=== PATIENT | male | born 1975 | race Caucasian/White ===

== ENCOUNTER 2017-06-17 19:20 | Inpatient (IN) | payer BC ==
[~2017-06-17] VITALS: Ht 177.8 cm; Wt 104.8 kg
--- NOTE | ~2017-06-17 | ER ---
PATIENT'S NAME: [facility] AGE: 41 Y [address] ROOM: [place] [address] LOCATION: GPCU ADMIT DATE: 06/17/2017 ER/Outpatient Report DISCHARGE DATE: FAMILY PHYSICIAN: Henry Arciniega MD ATTENDING PHYSICIAN: ALEX MONTAÑO Time of Arrival: 1920 hours. Time of Evaluation: 1945 hours. CHIEF COMPLAINT: Abdominal pain. HISTORY OF PRESENT ILLNESS: This is a 41-year-old male who presents to the ER with midepigastric abdominal pain. The patient states his pain started yesterday. States that his pain does radiate into his back. He did see his chiropractor for and felt like it maybe helped a little bit but started coming back, worse than it did before. He states that his pain is a dull aching pain. It makes him feel nauseated, but he has had no vomiting. He has had no diarrhea or constipation. His last bowel movement was today and was normal. He has had no troubles with his urine. No fever or chills. He states that he has never had anything like this before. He was seen over at [facility]. They did some blood work and sent him to the emergency room for further evaluation. The patient states that he was given a shot of Toradol and Phenergan at [facility] prior to arrival. ALLERGIES: NO KNOWN ALLERGIES. MEDICATIONS: Please see medication list in nurse's notes. PAST MEDICAL HISTORY: Depression. He has had a high blood pressures in the past but has never been treated for them. PAST SURGICAL HISTORY: Cholecystectomy, vasectomy, Lasik surgery, wisdom teeth removal. SOCIAL HISTORY: Drinks alcohol and beer daily. His last drink was yesterday. REVIEW OF SYSTEMS: All systems were reviewed and were negative with the exception of those discussed in the HPI. PATIENT'S NAME: [facility] AGE: 41 Y [address] ROOM: [place] [address] LOCATION: GPCU ADMIT DATE: 06/17/2017 ER/Outpatient Report DISCHARGE DATE: FAMILY PHYSICIAN: Henry Arciniega MD ATTENDING PHYSICIAN: ALEX MONTAÑO PHYSICAL EXAMINATION: VITAL SIGNS: Height 5 feet 10 inches stated, weight 105 kg taken, blood pressure is 228/122, pulse 89, respirations 16, temperature 98.4 degrees with a temporal scanner, saturations 91% on room air. [place] Coma Score is 15. GENERAL: Alert, calm, well-developed male, in mild distress. HEENT: Head: Normocephalic. He does display moist mucous membranes. Eyes: Pupils are equal and reactive to light. NECK: Supple. No lymphadenopathy. LUNGS: Clear to auscultation bilaterally. HEART: Regular rate and rhythm. ABDOMEN: Soft. He does have tenderness in his midepigastric region with palpation. He has good bowel sounds throughout. No masses were palpated. EXTREMITIES: No clubbing or cyanosis. He has full range of motion of all limbs. SKIN: Warm, dry, and intact. LABORATORY DATA: CBC: White count is 12.7, hemoglobin is 16.5, platelets 188. ANC is 10.5, INR is 0.96. CMS: Sodium 138, potassium 4.1, alkaline phosphatase 89, AST 43, ALT is 53, magnesium is 2.3, amylase is 50, CPK is 126, CK-MB is 0.6. Troponin I is less than 0.040. Lipase is 442. H pylori was negative. CT scan was done with IV contrast, this showed acute pancreatitis involving the head of the pancreas. EKG shows sinus rhythm. Labs are reviewed from [facility]. IMPRESSION: 1. Acute pancreatitis. 2. Hypertensive urgency. ASSESSMENT AND PLAN: We did monitor the patient here for quite some time. The patient did not require any pain medication while he was here. We did monitor his blood pressures while he was here, and his blood pressure systolic rate ranged from 175 up to the 200 range. He remained symptomatic free while he was here. The patient's primary care physician is Dr. Arciniega. Therefore, I called Dr. Montaño who is on-call for [facility], and he will be coming in to admit the patient at this time. The patient understands and agrees with care. CHENG CASTAÑEDA PA-C FOR MD AUSTIN FAJARDO/antonio PATIENT'S NAME: [facility] AGE: 41 Y [address] ROOM: [address] [address] [facility] ADMIT DATE: 06/17/2017 ER/Outpatient Report DISCHARGE DATE: FAMILY PHYSICIAN: Henry Arciniega MD ATTENDING PHYSICIAN: ALEX MONTAÑO /[id number] d: t: 06/21/17 1049, OUTPATIENT REPORT
--- NOTE | ~2017-06-17 | HP ---
PATIENT'S NAME: NICOLASA CASTILLO [facility] AGE: 41 Y [address] ROOM: [id number] [place], [place] [address] LOCATION: GPCU ADMIT DATE: 06/17/2017 History & Physical DISCHARGE DATE: FAMILY PHYSICIAN: Henry Arciniega MD ATTENDING PHYSICIAN: ALEX GARCIA DATE OF SERVICE: CHIEF COMPLAINT: "I have a pain in my belly." HISTORY OF PRESENT ILLNESS: Mr. Castillo is a 41-year-old gentleman with a past medical history significant for elevated blood pressures, depression and fatigue among others, who presents as admission to [facility] PCU from the [facility] Emergency Department for hypertensive urgency and pancreatitis. The patient was in his usual state of health and began experiencing epigastric abdominal pain about a day or so ago. The patient describes the pain is in the stomach and upper abdomen region. It is a sharp and stabbing pain that will radiate down both right and left-side, but mostly will radiate into the back. It is there most of the time and has been worsened with foods and liquid. He notes that he has had worsening pain to the point where he was seen at the [facility]. He had a number of laboratory assessments there including an elevated white blood cell count of 12.3 with elevated segs 70% and I also had elevated AST at 48. Otherwise, his labs were pretty normal. He received Phenergan as well as Toradol and was sent to the emergency department for further evaluation and management. Additionally, his blood pressure was slightly elevated at the clinic in the 158/114 range. The patient does report that he has few beers usually daily and a little bit more on the weekends. He also will have a period of a week or so where he does not drink alcohol. He does drink a little bit more when he has golf league. He also has gallbladder out about 4 or 5 years ago. Upon reaching the emergency department, the patient's blood pressure was 220/122, pulse 89, respirations 16, temp 98.4, and oxygen is 91% on room air. The patient was given no treatment for his blood pressure and did have an IV put in. He also had a metabolic panel at that time showed an elevated AST, elevated glucose of 107, he had an elevated lipase at 442. H. pylori test was negative. He had a CT scan that showed acute pancreatitis involving the head of the pancreas. There were no other significant abnormalities on his CT scan. His EKG showed a sinus rhythm. Really had no other intervention at that time. When I spoke with the patient, he was still complaining of some abdominal pain as previously described. However, he feels completely normal otherwise. No PATIENT'S NAME: NICOLASA CASTILLO [facility] AGE: 41 Y [address] ROOM: [id number] [place], [place] [address] LOCATION: GPCU ADMIT DATE: 06/17/2017 History & Physical DISCHARGE DATE: FAMILY PHYSICIAN: Henry Arciniega MD ATTENDING PHYSICIAN: ALEX GARCIA nausea or vomiting. No blood in the stools. No diarrhea or constipation. No urinary symptoms such as burning with urination, frequency of urination, or urinary retention. No headaches. No visual changes. No numbness, weakness, or tingling. No joint pain. Mood has been good. No rashes. Really no other acute complaints at this time. REVIEW OF SYSTEMS: Negative except for those noted in the HPI. ALLERGIES: NO KNOWN DRUG ALLERGIES. PAST MEDICAL HISTORY: 1. Depression. 2. Fatigue. 3. Elevated blood pressure. PAST SURGICAL HISTORY: 1. Cholecystectomy 2011. 2. LASIK 2006. 3. Vasectomy in 2010. SOCIAL HISTORY: The patient attended college. He works in finance. He is . He smoked for about 5 years 1/2 to 1 pack per day. Additionally, he denies any drug or supplement use. No other significant social history. FAMILY HISTORY: Parents are both alive. Father and mother are both aged 65. Father is completely healthy according to the patient. The mother suffers from early- onset dementia and was diagnosed around age 58. The patient reports no other significant family history issue except for gallbladder dysfunction, which his sister, father, and both grandmothers have had their gallbladders removed. No history of pancreatitis otherwise. PHYSICAL EXAMINATION: VITAL SIGNS: Reviewed. GENERAL: Pleasant, interactive, adult male in no acute distress. HEAD: Normocephalic, atraumatic. EYES: Conjunctivae clear. Sclerae white. ENT: Mucous membranes are moist. HEART: There is regular rate and rhythm. LUNGS: Clear to auscultation in all pierce bilaterally. ABDOMEN: Soft, nondistended. There is tenderness to palpation in the epigastrium. No rebound, rigidity, or guarding. There is also some mild PATIENT'S NAME: NICOLASA CASTILLO [facility] AGE: 41 Y [address] ROOM: [id number] [place], [place] [address] LOCATION: GPCU ADMIT DATE: 06/17/2017 History & Physical DISCHARGE DATE: FAMILY PHYSICIAN: Henry Arciniega MD ATTENDING PHYSICIAN: ALEX GARCIA tenderness to palpation in the lower abdomen. EXTREMITIES: Warm, well-perfused. No clubbing, cyanosis, or edema. SKIN: No rashes or acute findings. MUSCULOSKELETAL: No acute findings. NEUROLOGIC: Cranial nerves 2 through 12 grossly intact. No focal deficits noted on exam otherwise. LABORATORY DATA: Imaging and laboratory as per HPI. IMPRESSION, REPORT, PLAN: A 41-year-old male with hypertensive urgency as well as pancreatitis. 1. Hypertensive urgency. Honestly, this appears to be the patient's bigger issue at this point in time. His blood pressure currently is 232/112. He has not got any treatment in the emergency department. We will go ahead and give him a dose of clonidine 0.1 mg that can be repeated if this does not decrease over the course of the next hour or 2. May also consider hydralazine 10 mg q.6 h. p.r.n., blood pressures over 170-180 systolic. I did put in for some lisinopril that he could start in the morning since the patient will likely need a maintenance medication. If for some reason, his blood pressure continues to be elevated in the morning, we will hold this drug. There is no focal signs of end-organ damage or other issue at this point in time. 2. Acute pancreatitis. The patient does not have a gallbladder anymore so it is much less likely that it is gallstone related, the patient could have a stone somewhere else of biliary tract. We will have him undergo a right upper quadrant ultrasound in the morning for further evaluation. Additionally, the patient will be fluid hydrated, made n.p.o., he will have [place] and fentanyl available as well as acetaminophen. We will continue to closely monitor his clinical status and may consider advancing his diet tomorrow if he is doing better. 3. Depression. Continue with the patient's home medication regimen. 4. Remote history of tobacco abuse. Congratulated the patient on smoking cessation. 5. Fluids: Normal saline at 150 mL/hr. 6. Electrolytes: Stable. Monitor in the morning to include an amylase and lipase. 7. Nutrition: N.p.o. for now. 8. Prophylaxis: I encourage ambulation at this point in time. Consider chemoprophylaxis if needed. 9. Code status: Full code per my discussion with the patient. 10. Disposition: I will discuss the patient's case with Dr. Arciniega, primary care physician, who will assume his care in the morning. Should the patient's primary care physician be unavailable, I will continue to care for him at least until June 19, 2017. PATIENT'S NAME: NICOLASA CASTILLO [facility] AGE: 41 Y [address] ROOM: [place] [address] [facility] ADMIT DATE: 06/17/2017 History & Physical DISCHARGE DATE: FAMILY PHYSICIAN: Henry Arciniega MD ATTENDING PHYSICIAN: ALEX GARCIA MD MIGUE MCDONNELL/kennethl /[id number] D: T: 908 HISTORY & PHYSICAL
[2017-06-17 20:26] LABS: BASOPHIL # 0.1 K/uL (0.0-0.2); BASOPHIL % 0.4 %; EOSINOPHIL # 0.1 K/uL (0.0-0.5); EOSINOPHIL % 0.6 %; HEMATOCRIT 47.3 % (37.0-53.0); HEMOGLOBIN 16.3 g/dL (12.0-17.0); IMMATURE GRANULOCYTE % 0.2 %; LYMPHOCYTE % 7.6 %; MCH 29.5 pg (27.0-34.0); MCHC 34.5 gm/dL (32.0-36.5); MCV 85.5 fl (83.0-98.0); MONOCYTE # 1.2 K/uL (0.0-1.0); MONOCYTE % 9.2 %; MPV 8.6 fl (9.4-12.4); NEUTROPHIL # (ANC) 10.4 K/uL (1.4-9.0); NRBC % 0 /100WBC (0-0.00); PLATELET COUNT 188 K/uL (150-450); RBC 5.53 M/uL (4.00-6.00); WBC 12.7 K/uL (4.0-11.0)
[2017-06-17 20:34] LABS: INR - (THERAPEUTIC) 0.96 (0.92-1.07); PROTIME 10.1 SECONDS (9.8-11.4); PTT 27 SECONDS (25-32)
[2017-06-17 20:47] LABS: ALBUMIN 3.7 gm/dL (3.5-5.0); ALK PHOS 89 IU/L (33-138); ALT 53 IU/L (12-78); ANION GAP 14.1 (10.0-19.0); AST 43 IU/L (10-40); BLOOD UREA NITROGEN 12 mg/dL (6-24); CALCIUM 8.6 mg/dL (8.5-10.5); CHLORIDE 103 mMol/L (96-110); CO2 25 mMol/L (22-32); CPK 126 IU/L (35-332); CREATININE 1.2 mg/dL (0.6-1.3); MAGNESIUM 2.3 mg/dL (1.8-2.6); POTASSIUM 4.1 mMol/L (3.7-5.1); SODIUM 138 mMol/L (135-145); TOTAL BILIRUBIN 0.8 mg/dL (0.0-1.5); TOTAL PROTEIN 7.4 g/dL (6.0-8.4)
[2017-06-17] MEDS ORDERED: CELEXA40 MG PO (23:57)
[2017-06-17] MEDS ORDERED: WELLBUTRIN XL150 M1 PO (23:57)
--- NOTE | 2017-06-18 01:21 | NUR ---
PATIENT ARRIVED TO PCU AROUND 2333 VIA WHEELCHAIR FROM ER. PATIENT WENT TO URGENT CARE THIS EVENING WITH C/O OF NAUSEA, ABD PAIN IN THE RUQ, AND EPIGASTRIC PAIN. LIVER ENZYMES WERE ELEVATED AT THE CLINIC. PATIENT SENT TO THE ER FOR A CT SCAN OF ABD THAT SHOWED ACUTE PANCREATITIS TO THE HEAD OF THE PANCREAS. A/0X3. AFEBRILE. HR 84 199/109 95% ON RA. RR 16. PATIENT WAS GIVEN CLONIDINE IN ER FOR HYPERTENSION. PATIENT HAD SOME MILD PAIN IN THE EPIGASTRIC REGION AND RUQ WHEN ARRIVED TO FLOOR. NO C/O OF NAUSEA. DOCTOR SAW AND WROTE ORDERS IN THE ER.
--- NOTE | 2017-06-18 03:47 | NUR ---
Significant Event: RESTEED IN BED, TURNS SELF. A/0X3. VSS ON RA. SBP CAME DOWN TO THE 160-170'S AFTER CLONIDINE. IV TO L) AC WITH NS @ 150 MLS/H. NORCO GIVEN X 1 FOR ABD AND EPIGASTRIC PAIN. PATIENT WAS ABLE TO FIND RELIEF AND RESTING COMFORTABLY SINCE. VOIDS FINE. NO BM THIS SHIFT. NO C/O OF N/V. ULTRASOUND OF ABD THIS AM. AM LABS. Follow up: CONTINUE WITH PLAN OF CARE.
[2017-06-18 06:13] LABS: BASOPHIL % 0.2 %; EOSINOPHIL # 0.2 K/uL (0.0-0.5); EOSINOPHIL % 1.4 %; HEMATOCRIT 45.6 % (37.0-53.0); HEMOGLOBIN 15.5 g/dL (12.0-17.0); IMMATURE GRANULOCYTE % 0.4 %; LYMPHOCYTE # 1.2 K/uL (0.8-4.0); LYMPHOCYTE % 10.8 %; MCH 29.1 pg (27.0-34.0); MCV 85.7 fl (83.0-98.0); MONOCYTE # 1.3 K/uL (0.0-1.0); MPV 8.9 fl (9.4-12.4); NEUTROPHIL # (ANC) 8.3 K/uL (1.4-9.0); NEUTROPHIL % 75.2 %; NRBC % 0 /100WBC (0-0.00); PLATELET COUNT 191 K/uL (150-450); RBC 5.32 M/uL (4.00-6.00); RDW-CV 13.2 % (11.9-14.6)
[2017-06-18 06:26] LABS: ALBUMIN 3.2 gm/dL (3.5-5.0); ALK PHOS 78 IU/L (33-138); ALT 46 IU/L (12-78); ANION GAP 11.9 (10.0-19.0); AST 25 IU/L (10-40); BLOOD UREA NITROGEN 12 mg/dL (6-24); CALCIUM 8.2 mg/dL (8.5-10.5); CHLORIDE 107 mMol/L (96-110); CO2 23 mMol/L (22-32); POTASSIUM 3.9 mMol/L (3.7-5.1); SODIUM 138 mMol/L (135-145); TOTAL BILIRUBIN 0.9 mg/dL (0.0-1.5); TOTAL PROTEIN 6.7 g/dL (6.0-8.4)
--- NOTE | 2017-06-18 11:35 | NUR ---
(-)MST; PT REPORTS A 5# WT LOSS OVER THE LAST FEW WEEKS. WT LOSS IS NOT A SIGNIFICANT AMOUNT. APPETITE REPORTED FAIR.
--- NOTE | 2017-06-18 15:28 | NUR ---
Introduced self and role of care management to pt. He lives in [place] with and still works and independent with cares and denies dc needs.
--- NOTE | 2017-06-18 16:29 | NUR ---
Significant Event: Patient is alert and oriented x3. VSS. SBP 130-140. IVF continue at 150mls/hr. Clear liquid diet. Ultrasound this am showed inflammatory changes consistent with pancreatitis. No BM this shift. Patient voided shortly after 1600 and reported a large amount of dark yellow urine. has been in and out of patient room throughout day. Patient has been calm and cooperative with care.
--- NOTE | 2017-06-19 04:18 | NUR ---
Significant Event: A/0X3. RESTED IN BED. TURNS SELF. UP AB NOVA. WALKED HALLS X1. HAD A SLIGHT TEMP OF 99.3 BUT AFEBRILE SINCE. VSS ON RA. IV TO L) AC WITH NS @ 150 MLS/H. FENTANYL GIVEN X1 FOR EPIGASTRIC PAIN. PATIENT WAS ABLE TO FIND RELIEF AND REST COMFORTABLY THE REST OF THE SHIFT. HAD SOME JELLO FOR SUPPER. NO C/O OF N/V. NO BM THIS SHIFT. VOIDS FINE. Follow up: CONTINUE WITH PLAN OF CARE.
[2017-06-19 04:38] LABS: BASOPHIL % 0.3 %; EOSINOPHIL # 0.1 K/uL (0.0-0.5); EOSINOPHIL % 1.1 %; HEMOGLOBIN 13.8 g/dL (12.0-17.0); IMMATURE GRANULOCYTE % 0.4 %; LYMPHOCYTE # 1.4 K/uL (0.8-4.0); MCH 29.9 pg (27.0-34.0); MCHC 33.7 gm/dL (32.0-36.5); MCV 88.7 fl (83.0-98.0); MONOCYTE # 1.6 K/uL (0.0-1.0); MPV 8.8 fl (9.4-12.4); NEUTROPHIL # (ANC) 8.2 K/uL (1.4-9.0); NEUTROPHIL % 72.2 %; NRBC % 0 /100WBC (0-0.00); PLATELET COUNT 171 K/uL (150-450); RBC 4.62 M/uL (4.00-6.00); RDW-CV 13.3 % (11.9-14.6); WBC 11.3 K/uL (4.0-11.0)
[2017-06-19 04:52] LABS: ALBUMIN 2.8 gm/dL (3.5-5.0); ANION GAP 10.9 (10.0-19.0); CREATININE 1.1 mg/dL (0.6-1.3); POTASSIUM 3.9 mMol/L (3.7-5.1); TOTAL BILIRUBIN 0.8 mg/dL (0.0-1.5); TOTAL PROTEIN 6.2 g/dL (6.0-8.4)
--- NOTE | 2017-06-19 16:23 | NUR ---
Significant Event: A/OX3, VSS ON ROOM AIR. SLIV TO L)AC. DIET CHANGED TO REGULAR TODAY, ATE PART OF MEALS WITHOUT ANY COMPLICATIONS. UP AD NOVA IN ROOM. NO PAIN. POSSIBLE D/C TO HOME LATER. WAITING FOR [facility] TO CALL BACK. VOIDS FINE. Follow up: CONTINUE WITH POC.
[2017-06-19] MEDS ORDERED: NORVASC5 MG PO (16:43)
[2017-06-19] MEDS ORDERED: PRINIVIL (ZESTR20 MG PO (16:44)
[2017-06-19] MEDS ORDERED: CATAPRES0.1 MG PO (16:44)
[2017-06-19] MEDS ORDERED: NORCO 5-325 TA1 EACH PO (16:45)
--- NOTE | 2017-06-19 17:18 | NUR ---
PATIENT A/OX3, VSS ON ROOM AIR. UP AD NOVA IN ROOM. NO COMPLAINTS OF PAIN TODAY. TOLERATED REGULAR DIET WELL. IV TO L)AC REMOVED WITHOUT DIFFICULTLY. DISMISSAL INSTRUCTIONS, NEW MEDICAITONS GONE OVER WITH PATIENT AND , NO FURTHER QUESTIONS AT THIS TIME. DR. PEREZ TO CALL INTO PHARMACY NEW BLOOD PRESSURE MEDS, NORCO AND ZOFRAN FOR PATIENT. ALL BELONGINGS SENT HOME WITH PATIENT.
== END 2017-06-19 17:15 | disposition disaster alternative care site (69) | DRG 304 ==
LOC: GMED 19:20 → GPCU 22:26
PROVIDERS: Family Medicine; Physician Assistant Medical; ADMIT Family Medicine
DX: I16.0 Hypertensive urgency (principal); K85.90 Acute pancreatitis without necrosis or infection, unspecified; F32.9 Major depressive disorder, single episode, unspecified; Z90.49 Acquired absence of other specified parts of digestive tract; Z98.52 Vasectomy status; Z87.891 Personal history of nicotine dependence
CPT/HCPCS: A9270; J2405; J3010; J7030; Q9967